=== PATIENT | male | born 1945 | race Caucasian/White ===

== ENCOUNTER 2021-06-18 07:55 | Emergency (ER) | payer MEDICARE, OTHER ==
[2021-06-18] MEDS ORDERED: methylPREDNISolone Sodium Succinate 125 MG/2 ML SDV IM ONE (08:23)
--- NOTE | 2021-06-18 08:33 | EDM.PDOC ---
ED [facility] GENERAL MEDICAL PROBLEM - General Chief Complaint: Upper Extremity Injury/Pain Stated Complaint: [id number] RIGHT SHOULDER PAIN Time Seen by Provider: 06/18/21 08:00 Source of Information: Reports: Patient History Limitations: Reports: No Limitations - History of Present Illness INITIAL COMMENTS - FREE TEXT/NARRATIVE: This 75 yo male patient reports to the ED with right shoulder pain. The patient reports a history of bilateral rotator cuff surgeries. The patient reports his right shoulder was a partial repair. The patient states he started to have increased pain in his right shoulder yesterday after fishing throughout the day. The patient he had difficulties sleeping last night due to the pain which has continued through this morning. The patient denies any trauma or falls. Onset Date: 06/17/21 Duration: Constant, Getting Worse Location: Reports: Upper Extremity, Right Quality: Reports: Ache, Sharp, Stabbing Severity: Severe Improves with: Reports: Rest Worsens with: Reports: Movement Context: Reports: Other Associated Symptoms: Reports: No Other Symptoms Right Shoulder Pain Score (Numeric/FACES): 10 Review of Systems - Review of Systems Review Of Systems: Comprehensive ROS is negative, except as noted in HPI. ED EXAM, GENERAL - Physical Exam Exam: See Below Exam Limited By: No Limitations General Appearance: Alert, WD/WN, Moderate Distress Eye Exam: Bilateral Eye: EOMI, Normal Inspection, PERRL Ears: Normal External Exam, Other (bilateral hearing aids) Nose: Normal Inspection, Normal Mucosa, No Blood Throat/Mouth: Normal Inspection, Normal Lips, Normal Teeth, Normal Gums, Normal Oropharynx, Normal Voice, No Airway Compromise Head: Atraumatic, Normocephalic Respiratory/Chest: No Respiratory Distress Cardiovascular: Normal Peripheral Pulses, Regular Rate, Rhythm (Male) Exam: Deferred Rectal (Males) Exam: Deferred Extremities: Arm Pain (Right shoulder), Limited Range of Motion (due to pain in his right shoulder) Neurological: Alert, Oriented Psychiatric: Normal Affect, Normal Mood Course - Vital Signs Last Recorded V/S: Last Vital Signs Temp 98.4 F 06/18/21 08:14 Pulse 82 06/18/21 08:14 Resp 16 06/18/21 08:14 BP 149/75 H 06/18/21 08:14 Pulse Ox 94 L 06/18/21 08:14 - Orders/Labs/Meds Meds: Medications Discontinued Medications Generic Name Dose Route Start Last Admin Trade Name Caryl PRN Reason Stop Dose Admin Hydromorphone HCl 0.5 mg 06/18/21 08:23 Hydromorphone 0.5 Mg/0.5 Ml Syringe IM 06/18/21 08:24 ONETIME ONE Methylprednisolone Sodium Succinate 125 mg 06/18/21 08:23 Methylprednisolone Sodium Succinate 125 Mg/2 Ml Sdv IM 06/18/21 08:24 ONETIME ONE Departure - Departure Time of Disposition: 08:39 Disposition: Home, Self-Care 01 Condition: Fair Clinical Impression: Right shoulder strain Qualifiers: Encounter type: initial encounter Qualified Code(s): S46.911A - Strain of unspecified muscle, fascia and tendon at shoulder and upper arm level, right arm, initial encounter - Discharge Information *PRESCRIPTION DRUG MONITORING PROGRAM REVIEWED*: Not Applicable *COPY OF PRESCRIPTION DRUG MONITORING REPORT IN PATIENT MANI: Not Applicable Instructions: How to use a Sling, [id number], Shoulder Pain, [id number] Care Plan Goals: The patient was advised of the examination results during the visit. The patient was given an injection of SoluMedrol and an oral dose of Oxycodone while in the ED. The patient was discharged with a script for [place]son (10/325) #12 to take 1 by mouth every 6 hours as needed for pain and Prednisone (20 mg) #10 to take 2 by mouth daily for 5 days (starting 06/19/21). The patient was also placed in a sling for immobilization of his right shoulder. The patient was encouraged to rest his right arm and shoulder. If the patient has any additional symptoms or concerns, the patient should either return to the emergency department or visit his primary care facility. Sepsis Event Note (ED) - Focused Exam Vital Signs: Vital Signs Temp Pulse Resp BP Pulse Ox 06/18/21 08:14 98.4 F 82 16 149/75 H 94 L
[2021-06-18] MEDS ORDERED: Acetaminophen/oxyCODONE 325-5 MG Tab PO ONE (08:38)
[2021-06-18] MEDS: HYDROmorphone 0.5 MG/0.5 ML Syringe IM ONE ×2 (08:45→08:46)
== END 2021-06-18 08:55 | disposition home or self-care (01) ==
LOC: DL.ED 07:55
DX: S46.911A Strain of unspecified muscle, fascia and tendon at shoulder and upper arm level, right arm, initial encounter (principal); X58.XXXA Exposure to other specified factors, initial encounter
CPT/HCPCS: 96372; 99283; A9270; J2930; J1170